=== PATIENT | female | born 1995 | race Caucasian/White ===

== ENCOUNTER 2018-11-03 07:37 | Day surgery (SDC) | payer BC ==
[2018-11-03] MEDS ORDERED: FENTANYL PF 100MCG/2ML VIAL IV ONE (07:38)
[2018-11-03] MEDS ORDERED: DEXAMETHASONE PRESERVATIVE FREE 10MG/ML VIAL IV ONE (07:38)
[2018-11-03] MEDS ORDERED: MIDAZOLAM HCL 2MG/2ML VIAL IV ONE (07:38)
[2018-11-03] MEDS ORDERED: BUPIVACAINE 0.5% W/EPI MPF 30 ML VIAL IVP ONE (07:38)
[2018-11-03] MEDS ORDERED: KETAMINE HCL 100MG/1ML VIAL INJ ONE (07:38)
[2018-11-03] MEDS ORDERED: HYDROCODONE/APAP 7.5/325MG TABLET PO ONE (07:38)
[2018-11-03] MEDS ORDERED: LIDOCAINE 1% W/EPI 1:200,000 MPF 30ML SQ ONE (07:38)
[2018-11-03] MEDS ORDERED: PROPOFOL 10 MG/ML VIAL IV ONE (07:38)
[2018-11-03] MEDS ORDERED: LIDOCAINE 2% MDV (20MG/ML) 20ML VIAL IV ONE (07:38)
--- NOTE | 2018-11-03 16:44 | Operative Note - [place] ---
DATE OF SURGERY: 11/03/18 PREOPERATIVE DIAGNOSIS: CERVICAL SPONDYLOSIS WITHOUT MYELOPATHY, ICD-10 CODE = M47.812. OPERATION: RADIOFREQUENCY RHIZOTOMY BILATERAL CERVICAL FACETS 4-5 AND 5-6. SURGEON: DANIELLA CARNEY D.O. ANESTHESIA: LOCAL SEDATION. 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 Examination shows tenderness cervical spine. Range of motion does cause pain to the neck with extension. Diagnostic imaging shows diffuse multiple levels of spondylosis. A facet series 75 plus percent pain control. Due to the failure of therapies and the success of facet series, patient presents for rhizotomy for more long-term relief. PROCEDURE: Intravenous line, vital sign monitoring, IV sedation, prepped and draped in sterile technique. Facet levels cervical spine at 4-5 and 5-6 identified and marked bilaterally and infiltrated. A 20-gauge rhizotomy cannula positioned. Stimulation trial conducted. Rhizotomy burn performed 80 degrees for 90 seconds. Local with anti-inflammatory into the sites. Topical antibiotics. Sterile dressing applied. We will monitor and evaluate. cc: Dr. Mazariegos JOB NUMBER: [id number] MTDD
== END 2018-11-03 10:35 | disposition home or self-care (01) ==
LOC: SUR 07:37
PROVIDERS: ATTEND Pain Medicine Interventional Pain Medicine
DX: M47.812 Spondylosis without myelopathy or radiculopathy, cervical region (principal); M06.80 Other specified rheumatoid arthritis, unspecified site
CPT/HCPCS: 64633; 64634; 01936; 81025; J1100; J3010; J3490